=== PATIENT | male | born 1950 | race Caucasian/White ===

== ENCOUNTER 2017-10-01 20:45 | Observation (INO) | payer OTHER ==
[2017-10-01 20:20] VITALS: BP 117/67; PULSE 70; RESP 20; TEMP 98; O2SAT 99
[~2017-10-01 20:45] MED LIST: AMLO5TAB2 PO; ASPI-516 CHEW; ATOR20TA15 PO; CENTCHW4 CHEW; GLIP5TAB8 PO; LEVEMIR SQ; LISI40TA PO; LOSA100T2 PO; VIAG25TA PO
[2017-10-01] MEDS ORDERED: IOHEXOL 350 MG/ML 50 ML BTL (for Cath Lab) OTHER ONE (20:56)
[2017-10-01] MEDS ORDERED: ONDANSETRON HCL 4 MG/2 ML VIAL IV PUSH PRN ×2 (21:15)
[2017-10-01] MEDS ORDERED: ACETAMINOPHEN 500 MG CPLT PO PRN (21:15)
[2017-10-01] MEDS: ACETAMINOPHEN 500 MG CPLT PO PRN (21:33)
[2017-10-01 23:00] VITALS: PULSE 61
[2017-10-01] MEDS ORDERED: HUMALOG SQ (23:25)
[2017-10-02] VITALS (15 sets, daily range): BP systolic 135–197; BP diastolic 72–111; PULSE 66–106; RESP 18–20; TEMP 97.4–98.7; O2SAT 96–98
--- NOTE | 2017-10-02 07:15 | EKG ---
Date Performed: 10/01/2017 Time Performed: 21:17:13 PTAGE: 66 years EKG: Sinus rhythm BORDERLINE LEFT AXIS DEVIATION BORDERLINE ECG Since PREVIOUS TRACING , no significant change noted DOCTOR: Sandrine Gregorio Interpretating Date/Time 10/04/2017 08:18:03
[2017-10-02] MEDS: INSULIN ASPART SUPPLEMENTAL SCALE SQ SCH ×4 (08:00→20:46)
[2017-10-02] MEDS ORDERED: DEXTROSE 50% IN WATER 50 ML VIAL(D50) IV PUSH PRN (08:00)
[2017-10-02] MEDS ORDERED: GLUCAGON 1 MG/ML VIAL OTHER PRN (08:00)
--- NOTE | 2017-10-02 08:49 | HHI.HP ---
HPI Primary Care Physician Non-Staff Chief Complaint Chest pain History of Present Illness This is a 66-year-old male history of hypertension, hyperlipidemia, diabetes that presents to the [facility] ED to be evaluated for chest discomfort and was subsequent transported via ambulance to the chest pain center for further evaluation. He states that he developed a discomfort yesterday afternoon around 1230. Describes an intermittent tightness in the center of his chest. He has never had this before. States it lasts a few minutes and has recurred several times. He has been short of breath with it. Denies nausea or diaphoresis. He states he has had a stress test in the past. Estimates about 6 years ago. Believes it was okay. Denies recent illness. Denies fevers or chills. Review of Systems General: Patient denies fevers, chills, and recent travel. HEENT: Patient denies headache, sore throat, difficulty swallowing. Cardiovascular: Has the chest discomfort as mentioned above. Denies sensation of heart beating rapidly or irregularly. No syncope. Denies diaphoresis. Respiratory: He was short of breath. Denies inspirational chest discomfort. Denies coughing wheezing or hemoptysis. GI: Patient denies nausea, vomiting, diarrhea, abdominal pain, bloody stools. Musculoskeletal: Chronic bilateral knee pain. States he needs to have his knees replaced. Denies calf pain or edema. Neurovascular: Patient denies numbness, tingling, weakness in extremities. Denies headache. Endocrine: Denies polyuria and polydipsia. Hematologic: Denies easy bruising. Skin: Denies rash or itching. Past Family Social History Allergies: Coded Allergies: iodine (Verified Allergy, Unknown, 10/01/17) Past Medical History Hypertension, hyperlipidemia, diabetes. Denies known CAD. Reported Medications Reported Meds & Active Scripts Active Reported Humalog Inj (Insulin Human Lispro) 1,000 Unit/10 Ml Vial 5-25 Units SQ ACHS Max dose at bedtime:( )units; sugars < 70,(0)units; sugars 150-199,(5)units; sugars 200-249,(10)units; sugars 250-299,(15)units; sugars 300-349,(20)units; sugars more than 349,(25)units. Glipizide 5 Mg Tab 5 Mg PO DAILY Take 30 minutes before a meal Levemir Inj (Insulin Detemir) 1,000 unit/ 10 ML Vial 40 Units SQ HS NEB Do not mix with any other Insulin. Levemir Inj (Insulin Detemir) 1,000 unit/ 10 ML Vial 60 Units SQ DAILY Do not mix with any other Insulin. Centrum (Multiple Vitamins W/ Minerals) 1 Chew 1 Tab CHEW DAILY Losartan-Hydrochlorothiazide 100-25 Mg Tab 1 Tab PO DAILY Amlodipine (Amlodipine Besylate) 5 Mg Tab 5 Mg PO DAILY Atorvastatin (Atorvastatin Calcium) 20 Mg Tab 20 Mg PO HS Lisinopril 40 Mg Tab 40 Mg PO DAILY Viagra (Sildenafil Citrate) 25 Mg Tab 25 Mg PO DAILY PRN Aspirin 81 Mg Chew 81 Mg CHEW DAILY Active Ordered Medications Current Medications Medications (Trade) Dose Ordered Sig/Ko Route Start Time Stop Time Status Last Admin (Tylenol) 500 mg Q4H PRN PO 10/01/17 21:15 10/01/17 21:33 (Zofran Inj) 4 mg Q6H PRN IV PUSH 10/01/17 21:15 (NovoLOG SUPPLEMENTAL SCALE) 1 ACHS SLIDING SCALE SQ 10/02/17 08:00 (D50w (Vial) Inj) 50 ml UNSCH PRN IV PUSH 10/02/17 08:00 (Glucagon Inj) 1 mg UNSCH PRN OTHER 10/02/17 08:00 (Norvasc) 5 mg DAILY PO 10/02/17 09:00 (Lipitor) 20 mg HS PO 10/02/17 21:00 (Theragran M Tab) 1 tab DAILY PO 10/02/17 09:00 (Prinivil) 40 mg DAILY PO 10/02/17 09:00 (Cozaar) 100 mg DAILY PO 10/02/17 09:00 (Hydrodiuril) 25 mg DAILY PO 10/02/17 09:00 Family History There is family history of CAD. Social History Non-smoker. Denies alcohol or illicit drug use. Physical Exam Vital Signs Vital Signs Date Time Temp Pulse Resp B/P (MAP) Pulse Ox O2 Delivery O2 Flow Rate FiO2 10/02/17 08:04 160/98 (118) 10/02/17 07:50 97.8 77 20 197/111 (139) 97 10/02/17 04:00 97.9 80 20 148/77 (100) 98 10/02/17 00:00 97.7 72 18 135/82 (99) 97 10/01/17 23:00 61 10/01/17 22:33 20 10/01/17 20:20 98.0 70 20 117/67 (84) 99 Physical Exam GENERAL: This is a well-nourished, well-developed patient, in no apparent distress. Patient speaks in clear complete sentences. Patient is pleasant. HEENT: Head is atraumatic and normocephalic. Neck is supple without lymphadenopathy and trachea is midline. No JVD or carotid bruits. CARDIOVASCULAR: Regular rate and rhythm without murmurs, gallops, or rubs. RESPIRATORY: Clear to auscultation. Breath sounds equal bilaterally. No wheezes , rales, or rhonchi. Chest wall is nontender. No use of accessory muscles. GASTROINTESTINAL: Abdomen is nontender, nondistended. Abdomen soft. No obvious pulsatile mass or bruit. No CVA tenderness. Strong femoral pulses bilaterally. Normal bowel sounds in all quadrants. MUSCULOSKELETAL: Patient is moving upper and lower extremities freely. No calf tenderness or edema, no Homans sign. Strong pulses in upper and lower extremities. NEUROLOGICAL: Patient is alert and oriented. Cranial nerves 2-12 are grossly intact. No focal deficits and speech is clear. SKIN: No rash and turgor is normal. Laboratory Laboratory Tests Test 10/01/17 21:10 10/02/17 02:50 Troponin I LESS THAN 0.02 LESS THAN 0.02 Imaging Chest x-ray read by radiologist as no acute abnormality. Course EKGs are sinus rhythm without significant ST segment depressions or elevations. Caprini VTE Risk Assessment Caprini VTE Risk Assessment: Mod/High Risk (score >= 2) Caprini Risk Assessment Model Point Value = 1 Point Value = 2 Point Value = 3 Point Value = 5 Age 41-60 Minor surgery BMI > 25 kg/m2 Swollen legs Varicose veins or History of unexplained or recurrent spontaneous Oral contraceptives or hormone replacement Sepsis (< 1 month) Serious lung disease, including pneumonia (< 1 month) Abnormal pulmonary function Acute myocardial infarction Congestive heart failure (< 1 month) History of inflammatory bowel disease Medical patient at bed rest Age 61-74 Arthroscopic surgery Major open surgery (> 45 min) Laparoscopic surgery (> 45 min) Malignancy Confined to bed (> 72 hours) Immobilizing plaster cast Central venous access Age >= 75 History of VTE Family history of VTE Factor V Leiden Prothrombin [id number] Lupus anticoagulant Anticardiolipin antibodies Elevated serum homocysteine Heparin-induced thrombocytopenia Other congenital or acquired thrombophilia Stroke (< 1 month) Elective arthroplasty Hip, pelvis, or leg fracture Acute spinal cord injury (< 1 month) Prophylaxis Regimen Total Risk Factor Score Risk Level Prophylaxis Regimen 0-1 Low Early ambulation 2 Moderate Order ONE of the following: *Sequential Compression Device (SCD) *Heparin 5000 units SQ BID 3-4 Higher Order ONE of the following medications: *Heparin 5000 units SQ TID *Enoxaparin/Lovenox 40 mg SQ daily (WT < 150 kg, CrCl > 30 mL/min) *Enoxaparin/Lovenox 30 mg SQ daily (WT < 150 kg, CrCl > 10-29 mL/min) *Enoxaparin/Lovenox 30 mg SQ BID (WT < 150 kg, CrCl > 30 mL/min) AND/OR *Sequential Compression Device (SCD) 5 or more Highest Order ONE of the following medications: *Heparin 5000 units SQ TID (Preferred with Epidurals) *Enoxaparin/Lovenox 40 mg SQ daily (WT < 150 kg, CrCl > 30 mL/min) *Enoxaparin/Lovenox 30 mg SQ daily (WT < 150 kg, CrCl > 10-29 mL/min) *Enoxaparin/Lovenox 30 mg SQ BID (WT < 150 kg, CrCl > 30 mL/min) AND *Sequential Compression Device (SCD) Assessment and Plan Assessment and Plan * Chest pain: Patient has had serial cardiac enzymes and EKGs for ruling out purposes. He has been seen by Dr. Gregorio of cardiology in the chest pain center. He will undergo a Lexiscan. He will be discharged home if the stress test is nonischemic with instructions to follow-up with PCP and return to ED for interval issues. * Hypertension: Continue medication. * Hyperlipidemia: Continue medication. * Diabetes: Patient will be on sliding scale insulin coverage while in chest pain center. He should follow a diabetic diet. He should resume medication at discharge. Patient is stable at this time. He is agreeable to this plan. Stress test came back abnormal. This was discussed with Dr. Vargas. He has evaluated the patient. He has requested 1 L IV bolus and a repeat basic metabolic panel. Nitrol ointment will be applied. Patient also has allergy to iodine. Dr. Vargas is requested Solu-Medrol 60 mg IV. This has been ordered. Patient will likely have heart catheterization either today or tomorrow. Patient is agreeable to this plan. Booker Mcneal October 02, 2017 08:49
[2017-10-02] MEDS ORDERED: HYDROCHLOROTHIAZIDE 25 MG TAB PO SCH (09:00)
[2017-10-02] MEDS ORDERED: NON-FORMULARY DRUG (Losartan-Hydrochlorothiazide 1 TAB) PO SCH (09:00)
[2017-10-02] MEDS ORDERED: LOSARTAN 50 MG TAB PO SCH (09:00)
[2017-10-02] MEDS: amLODIPine BESYLATE 5 MG TAB PO SCH (10:19)
[2017-10-02] MEDS: LISINOPRIL 20 MG TAB PO SCH (10:20)
[2017-10-02] MEDS: MULTIVITAMINS/MINERALS THERAPEUTIC TAB PO SCH (10:21)
[2017-10-02] MEDS ORDERED: REGADENOSON INJ 0.4 MG/5 ML SYR ONE (11:07)
--- NOTE | 2017-10-02 13:21 | RADRPT ---
EXAM DATE: 10/02/2017 12:47 PM EDT AGE/SEX: 66 years / Male INDICATIONS:Angina. . Substernal chest pain. CLINICAL DATA: This is the patient's initial encounter. Patient reports that signs and symptoms have been present for 1 day and indicates a pain score of 4/10. MEDICAL/SURGICAL HISTORY: Hypertension. Diabetes mellitus type II. None. COMPARISON: No prior [facility] exams available for comparison. DOSE: 26.5 mCi Tc 99m Myoview at rest 8.3 mCi [id number] at stress 0.4 mg Lexiscan STRESS SYMPTOMS: Dyspnea and chest heaviness. EJECTION FRACTION: 52 % TECHNIQUE: The patient underwent pharmacologic stress with infusion of prescribed dose. Continuous ECG tracing was monitored during stress. Gated SPECT imaging was performed after stress and conventi onal SPECT imaging was performed at rest. The examination was performed on a SPECT /CT scanner, both attenuation and non-corrected datasets were reviewed. FINDINGS: Distribution: The maximum perfused segment at stress is in the lateral wall. Perfusion Study: There is a small to moderate focal wall defect involving the anterior lateral wall w hich is of moderate severity. There is a summed stress score of 8. Gated Study: There are intact wall motion and wall thickening without hypokinetic or dyskinetic segm ents. The ejection fraction is calculated at 52%. RISK CATEGORY: Intermediate (1-3 % Annual Mortality Rate) CONCLUSION: 1. Moderate size focal perfusion defect with reversibility involving the anterolateral wall which is of moderate severity. This suggests stenosis in the left anterior descending artery distribution. 2. Normal wall motion and calculated ejection fraction. Electronically signed by: Brown Thapa MD 10/02/2017 1:20 PM EDT
[2017-10-02] MEDS ORDERED: SODIUM CHLOR 0.9% 1000 ML INJ 1,000 ML IV SCH ×2 (15:24→16:00)
[2017-10-02] MEDS ORDERED: NITROGLYCERIN 2% OINT 1 GM PACKET TOPICAL SCH (15:30)
[2017-10-02] MEDS ORDERED: methylPREDNISolone SOD SUCC 125 MG/2 ML VIAL IV PUSH ONE (15:45)
[2017-10-02] MEDS ORDERED: HEPARIN-NS/PF INJ 1,000 ML ONE (15:51)
[2017-10-02] MEDS: NITROGLYCERIN 2% OINT 1 GM PACKET TOPICAL SCH ×2 (16:23→22:00)
[2017-10-02] MEDS ORDERED: HEPARIN-NS/PF INJ 500 ML ONE (16:49)
[2017-10-02] MEDS ORDERED: FAMOTIDINE 20 MG/2 ML VIAL ONE (16:51)
[2017-10-02] MEDS ORDERED: diphenhydrAMINE HCL 50 MG/ML VIAL ONE (16:51)
[2017-10-02] MEDS ORDERED: MIDAZOLAM HCL 2 MG/2 ML VIAL ONE (16:51)
[2017-10-02] MEDS ORDERED: HEPARIN SODIUM - IV 10,000 UNITS/10 ML VIAL ONE (16:51)
[2017-10-02 17:37] LABS: BICARBONATE 22.6 MEQ/L (21.0-32.0); CALCIUM 9.1 MG/DL (8.5-10.1); CREATININE 1.51 MG/DL (0.60-1.30)
--- NOTE | 2017-10-02 17:42 | TR ---
Date Performed: 10/02/2017 Time Performed: 11:27:01 DOCTOR: Sandrine Gregorio DRUG LIST: CLINICAL HISTORY: REASON FOR TEST: CHEST PAIN REASON FOR ENDING: OBSERVATION: CONCLUSION: Lexiscan stress test was performed under standard four minute protocol. Radionuclid e was injected one minute prior to ending the test. No electrocardiographic abormalities were present to suggest ischemia. Nuclear imaging and interpretation are pending. COMMENTS: no ischemia
--- NOTE | 2017-10-02 17:42 | CATHPROC ---
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 Description Size Mfg Part Number Used/Scraped TRANSDUCER, BRIE [id number] 16:48 MAN LOZANO * Used W/STOCKCOCK *[id number] *[id number] *[id number] 16:48 MEDLINE IND[employer]RIES PACK, CCL CUSTOM * Used *[id number] 16:48 [employer] PACER PEN, SKIN DUAL W/ RULER * Used *[id number] 16:48 [employer] MEDICAL WIRE, 3MMJ .035 180CM 180CM Used *[id number] 16:48 NAMIC MANIFOLD, 4 PORT * Used *[id number] 16:48 NYCOMED OMNIPAQUE, 350 MG, 150ML 150ML [id number] 16:48 HARMON MEDICAL BLANKET,WARM AIR CCL * Used *[id number] 16:48 TERUMO MEDICAL SHEATH, FR4 TERUMO (10CM) FR 4 Used *[id number] History: Current Medications Medication Dosage/Unit Route Frequency Last Date/Time Taken Glypizide Insulin HCTZ NORVASC Statins (any) LISINOPRIL ASA Viagra History: Allergies Allergy Reaction iodine History: Risk Factors Family History of Hypertension Dyslipidemia Previous IN Previous Heart Failure Premature CAD Yes Yes Yes No No Prior Valve Prior PCI Prior CABG Surgery No No No Cerebrovascular Peripheral Artery Chronic Lung On Dialysis Diabetes Diabetes Therapy Disease Disease Disease No No No No Yes Insulin History: Symptoms/Diagnosis Selection Items Chest pain History: Stress Tests Stress or Imaging Studies Performed Yes Standard Exercise Stress Test No Stress Echo No Stress Test SPECT Yes History: Other Current Smoker No Labs Hgb (g/dl) Hct (%) WBC (l/cumm) Platelets (thousands) 11.60-17.00 35.00-51.00 4.00-11.00 150.00-450.00 11.0 32.4 7.3 341 Glucose (mg/dl) BUN (mg/dl) Creatinine (mg/dl) BUN:Creatinine (1:x) 74.00-106.00 7.00-18.00 0.50-1.30 10.00-20.00 248 37 1.7 21.8 Na (meq/l) K (meq/l) Cl (meq/l) CO2 (mmol/L) Ca (mg/dl) 136.00-145.00 3.50-5.10 98.00-107.00 21.00-32.00 8.50-10.10 143 4 112 21 8.3 PT (sec) PTT (sec) INR (PTT:PT) 9.80-11.60 24.30-30.10 0.90-1.10 9.6 24.8 0.9 Troponin I (ng/ml) CPK-MB (ng/ML) 0.02-0.05 0.50-3.60 0.02 Not Drawn Medication Medication Total Dose (Bolus/Oral) Medication Total Dosage/Unit 1% XYLOCAINE 20 mL BENADRYL 50 mg FENTANYL 25 mcg PEPCID 20 mg VERSED 1.5 mg Medications (Bolus/Oral) Medication Time Given Dosage/Unit Administered By Reason PEPCID 10/02/2017 5:02:40 PM 20 mg Sara Mcleod 20 mg PEPCID given in lab by Sara Mcleod, MILLY in Right Wrist via Peripheral IV. Ordered by Aleksandar Cueva. BENADRYL 10/02/2017 5:03:11 PM 50 mg Sara Mcleod 50 mg BENADRYL given in lab by Sara Mcleod, MILLY in Right Wrist via Peripheral IV. Ordered by Aleksandar Peña. VERSED 10/02/2017 5:14:42 PM 1 mg Alyse Schmidt 1 mg VERSED given in lab by Alyse Schmidt, MILLY in Right Wrist via Peripheral IV. Ordered by Aleksandar Cueva. FENTANYL 10/02/2017 5:15:01 PM 25 mcg Alyse Schmidt 25 mcg FENTANYL given in lab by Alyse Schmidt, RN in Right Wrist via Peripheral IV. Ordered by Aleksandar Almeida. 1% XYLOCAINE 10/02/2017 5:16:53 PM 20 mL Aleksandar Vargas For pain 20 mL 1% XYLOCAINE given in lab by Aleksandar Vargas in Right Groin via Subcutaneous. Ordered by Aleksandar Peña. Reason: For pain. VERSED 10/02/2017 5:19:32 PM 0.5 mg Alyse Schmidt 0.5 mg VERSED given in lab by Alyse Schmidt, MILLY in Right Wrist via Peripheral IV. Ordered by Aleksandar Peña. Medication (Drip) Medication Time Given Dosage/Unit Concentration/Unit Diluent (ml) Solution IV Solutions 10/02/2017 4:59:56 PM 0 mL (IV) 1000 NaCl .9 Patient arrived on IV Solutions in Right Wrist via Peripheral IV. Pump/Drip Flow = 20 ml/hr using NaC l .9. Ordered by Aleksandar Vargas. Initial Case Assessment Cardiovascular HR Rhythm NIBP Chest Pain 75 sr 162/98 0 Edema Present Skin color Skin None Normal Warm Dry Circulatory - Right Pulses Dorsalis Pedis Femoral 2 2 Scale (0,1,2,3,4,d) Circulatory - Left Pulses Dorsalis Pedis Femoral 2 2 Scale (0,1,2,3,4,d) Neurological State Oriented to time-place- Alert Moves all extremities person Respiration - General Respiration Rate SpO2 (%) (B/min) 18 100 Final Case Assessment Cardiovascular HR Rhythm NIBP Chest Pain 75 sr 151/91 0 Edema Present Skin color Skin None Normal Warm Dry Circulatory - Right Pulses Dorsalis Pedis Femoral 2 2 Scale (0,1,2,3,4,d) Circulatory - Left Pulses Dorsalis Pedis Femoral 2 2 Scale (0,1,2,3,4,d) Neurological State Oriented to time-place- Alert Moves all extremities person Respiration - General Respiration Rate SpO2 (%) (B/min) 18 99 Chronological Log Time Study Chronological Log 16:55:57 Patient arrived via Bed. 16:55:58 Patient Name, D.O.B, / Armband Verified By R.N. 16:55:59 Pre-op and post- op instructions given; patient acknowledges understanding of instructions. 16:56:02 Patient has been NPO for More than 6Hrs. 16:56:03 Skin Breakdown-none per patient 16:56:09 Liv Prominences Protected 16:59:43 A # 20 IV was noted in the Wrist (right). Grade = 0 Patient arrived on IV Solutions in Right Wrist via Peripheral IV. Pump/Drip Flow = 20 ml/hr usi ng NaCl .9. Ordered by 16:59:56 Aleksandar Vargas. 17:00:34 History and physical on the chart or being dictated. Assessment: Initial Case, HR=75 BPM, Rhythm=sr, RGUN=921/98 mmhg, Chest Pain=0, Edema=None, Col or=Normal, Skin = Warm, Dry Right Pulses: Mohan Ped=2, Femoral=2 17:01:04 Left Pulses: Mohan Ped=2, Femoral=2 Neurological: State=Alert, Ox3, DUNN Respiration: Resp=18 B/min, SpW0=989 % Vitals capture started with the following parameters, Patient=Adult, Interval=5 min, Initial Pr qqhzdb=956 mmHg, 17:01:44 Deflation Rate=5 mmHg, Cuff placed on Right Arm 17:01:51 Reference ECG taken 17:02:32 HR=68 bpm, VNYF=988/98 mmhg, SpO2=98.0 %, Resp=16 B/min, Pain=0, Zachery=10, Pagan=2 17:02:40 20 mg PEPCID given in lab by Sara Mcleod, RN in Right Wrist via Peripheral IV. Ordered by Aleksandar Vargas. 17:03:11 50 mg BENADRYL given in lab by Sara Mcleod, MILLY in Right Wrist via Peripheral IV. Ordere d by Aleksandar Vargas. 17:03:19 MD arrived. 17:06:17 Vitals capture stopped. Vitals capture started with the following parameters, Patient=Adult, Interval=5 min, Initial Pr szwqsw=836 mmHg, 17:06:19 Deflation Rate=5 mmHg, Cuff placed on Right Arm 17:06:24 Bilateral groins prepped with 2% chlorhexidine, and draped after a 3 minute waiting time. 17:07:41 XK=287 bpm, PKKI=594/97 mmhg, SpO2=99.0 %, Resp=14 B/min, Pain=0, Zachery=10, Pagan=2 17:08:45 Pressure channel 1 zeroed. 17:12:09 HR=96 bpm, VELA=778/92 mmhg, SpO2=98.0 %, Resp=13 B/min, Pain=0, Zachery=10, Pagan=2 17:14:42 1 mg VERSED given in lab by Alyse Schmidt, MILLY in Right Wrist via Peripheral IV. Ordered by Aleksandar Vargas. 17:15:01 25 mcg FENTANYL given in lab by Alyse Schmidt, MILLY in Right Wrist via Peripheral IV. Orde red by Aleksandar Vargas. Time Out. Correct patient, correct procedure, correct physician, labs, allergies, and equipment verified with rn cardiac cath 17:16:21 team present. Fire risk assesment completed (see hard stop sheet for coding). Time Out Conc urred by MD and individual staff in procedure. 17:16:51 Case Start 20 mL 1% XYLOCAINE given in lab by Aleksandar Vargas in Right Groin via Subcutaneous. Ordered by Alicia 17:16:53 Aleksandar. Reason: For pain. 17:17:09 Access site was Right Femoral Artery. 17:17:47 HR=98 bpm, VHOU=574/83 mmhg, SpO2=99.0 %, Resp=9 B/min, Pain=0, Zachery=10, Pagan=2 17:17:58 A SHEATH, FR4 TERUMO (10CM) FR 4 was advanced into the Fem Art (right) using the Percutaneo us technique. A JR 4.0 INFINITI CATHETER FR 4 was advanced over a wire. OMNIPAQUE, 350 MG, 150ML 150ML was us ed for 17:18:06 injections. 17:19:32 0.5 mg VERSED given in lab by Alyse Schmidt, MILLY in Right Wrist via Peripheral IV. Ordere d by Aleksandar Vargas. Recorded Pressure: LV, HR=92, Condition=Condition 1 17:20:45 (Left Ventricle) LV 112/106/111 17:20:50 The LV was manually injected with 3 cc's and visualized. OMNIPAQUE, 350 MG, 150ML 150ML use d. Recorded Pressure: LV, Ao, HR=89, Condition=Condition 1 17:20:58 (Left Ventricle) LV 153/0/2, (Aorta) Ao 156/80/113 17:22:03 HR=96 bpm, KJHT=543/96 mmhg, SpO2=97.0 %, Resp=11 B/min, Pain=0, Zachery=10, Pagan=2 17:22:15 The RCA was injected and visualized at various angles. OMNIPAQUE, 350 MG, 150ML 150ML used . 17:23:40 Catheter was removed A JL 4.0 INFINITI CATHETER FR 4 was advanced over a wire. OMNIPAQUE, 350 MG, 150ML 150ML was us ed for 17:23:43 injections. Recorded Pressure: Ao, HR=93, Condition=Condition 1 17:23:52 (Aorta) Ao 139/74/102 17:24:13 The LCA was injected and visualized at various angles. OMNIPAQUE, 350 MG, 150ML 150ML used . 17:25:32 Catheter was removed 17:26:58 HR=96 bpm, PQAZ=349/95 mmhg, Resp=15 B/min, Pain=0, Zachery=10, Pagan=2 17:26:58 Sheath removed; pressure applied to access site. 17:29:15 Cine recording checked. 17:29:16 No case complications noted. 17:29:19 Bedside Report will be given. 17:32:01 HR=91 bpm, WQZF=864/91 mmhg, SpO2=95.0 %, Resp=11 B/min, Pain=0, Zachery=10, Pagan=2 17:32:30 DOCU called. Spoke to Doris ATKINS 17:36:20 Sterile dressing applied to site 17:36:20 No case complications noted. 17:36:23 [facility]: Final Case, HR=75 BPM, Rhythm=sr, VJQD=920/91 mmhg, Chest Pain=0, Edema=None, Grandy r=Normal, Skin = Warm, Dry Right Pulses: Mohan Ped=2, Femoral=2 17:36:27 Left Pulses: Mohan Ped=2, Femoral=2 Neurological: State=Alert, Ox3, DUNN Respiration: Resp=18 B/min, SpO2=99 % 17:36:29 Vitals capture stopped. End Study - Contrast Media Used In Study Contrast Total Opened (mL) Total Used (mL) Total Wasted (mL) Omnipaque 14 14 0 End Study - Maximum Contrast Load Max Contrast Load (mL) 255.9 End Study - Radiation Exposure Fluoro Time (minutes) 1.8 End Study - Patient Disposition Complications Transferred To No Telemetry Bed
--- NOTE | 2017-10-02 17:44 | EKG ---
Date Performed: 10/01/2017 Time Performed: 23:06:18 PTAGE: 66 years EKG: Sinus rhythm POSSIBLE LATERAL MYOCARDIAL INFARCTION ABNORMAL ECG Since PREVIOUS TRACING , no significant change noted PREVIOUS TRACIN10/01/2017 21.17 DOCTOR: Sandrine Gregorio Interpretating Date/Time 10/02/2017 17:43:48
--- NOTE | 2017-10-02 17:55 | MB ---
cc: Aleksandar Vargas MD, Arthur W MD DATE: 10/02/2017 HISTORY OF PRESENT ILLNESS: Joel is a 66-year-old gentleman with history of chronic renal insufficiency, hypertension, hyperlipidemia, diabetes who presents to the [facility] emergency room with a chief complaint of chest pain rated as moderate, pressure-like, also described as tightness. He was transferred to [facility] for further evaluation and management. Otherwise, denies fever, chills, cough, or GI bleeding, PND, orthopnea, syncope or dizziness. PAST MEDICAL HISTORY: Per history of present illness. ALLERGIES: IODINE. MEDICATIONS PRIOR TO ADMISSION 1. Humalog. 2. Glipizide. 3. Levemir 4. Centrum. 5. Losartan/hydrochlorothiazide 100/25 6. Amlodipine 5 mg daily. 7. Atorvastatin 20 mg at bedtime. 8. Lisinopril 40 mg daily. 9. Viagra 25 mg p.r.n. 10. Aspirin 81 mg a day. MEDICATIONS IN THE HOSPITAL: 1. Atorvastatin 20 mg at bedtime 2. Half inch nitro paste q 8 hs. 3. Amlodipine 5 mg daily. 4. Multivitamins. 5. Lisinopril 40 mg daily. PHYSICAL EXAMINATION: VITAL SIGNS: Blood pressure 163/94, pulse 92, respiratory rate 18, temperature 97.4. GENERAL: He is alert and oriented x3, in no acute distress. NECK: Supple. No JVD. No bruit. CARDIOVASCULAR: S1, S2. No murmurs, rubs or gallops. LUNGS: Clear to auscultation bilaterally. ABDOMEN: Soft, nontender, nondistended with positive bowel sounds. EXTREMITIES: No lower extremity edema. CARDIOLOGY STUDIES: Myocardial perfusion study showed a moderate size focal perfusion defect with reversibility involving the anterolateral wall, moderate in severity. EF 52%. Intermediate risk. EKG: Normal sinus rhythm, nonspecific ST-T wave changes. LABORATORY DATA: Troponin less than 0.02 x2. White count 7.3, hemoglobin 11.0, hematocrit 32.4, platelet count 341. Sodium 143, potassium 4.0, chloride 112, bicarbonate 21.0, BUN 37, creatinine 1.70, AST 13, ALT 19. BNP is 80. INR 1.9. DIAGNOSES: 1. Unstable angina. 2. [place] [employer] class IV angina. 3. Moderate risk myocardial perfusion study. 4. Diabetes mellitus. 5. Chronic renal insufficiency. 6. Anemia. DISCUSSION: I have explained to the patient that risk of cath PCI is 5-10% chance of , stroke, heart attack, bleeding, infection, need for bypass surgery, dialysis, blood transfusion, bleeding, infection, anaphylaxis and arrhythmia. I told him in particular due to his elevated creatinine that he would be a higher than average risk for needing temporary or permanent dialysis. I do think left heart catheterization is urgently indicated due to the resting angina, which is new onset and by definition [place] [employer] class IV angina with a moderate size area of reversibility in the anterolateral wall of moderate severity and moderate risk nuclear stress test, multiple cardiac risk factors including chronic renal insufficiency and diabetes mellitus. The patient has been hydrated with 1 liter of normal saline prior to procedure. Further recommendations based on the details of his cardiac catheterization. We will continue Lovastatin 20 mg at bedtime. If the patient has coronary artery disease, we will certainly start aspirin 81 mg daily. MD MARILYN South/ , 05:13 PM , 05:53 PM
--- NOTE | 2017-10-02 20:08 | MR ---
cc: Aleksandar Vargas MD DATE: 10/02/2017 PROCEDURE: Left heart catheterization, left ventriculography, coronary angiography. INDICATIONS FOR PROCEDURE: Unstable angina, [place] Cardiovascular Society class IV angina. Moderate risk nuclear stress test, with moderate severity, moderate size reversible defect in the anterolateral wall, diabetes mellitus, chronic renal insufficiency, multiple risk factors. Note, prior to procedure, I explained to the patient that the risk of cardiac catheterization PCI with a 5-10% chance of , stroke, heart attack, bleeding, infection, need for bypass surgery, dialysis, blood transfusion, bleeding, infection, infarction, arrhythmia. I explained in particular that his risk for needing temporary or permanent dialysis would be even higher due to his baseline chronic renal insufficiency. The patient understood and consented to the procedure. The patient was pretreated with 60 mg of Solu-Medrol, 50 mg of IV Benadryl and 20 mg of IV Pepcid due to his DYE ALLERGY. DESCRIPTION OF PROCEDURE: The patient was brought to the cardiac catheterization laboratory, prepped and draped in the usual sterile fashion, 10 mL of 1% lidocaine was used to locally anesthetize the right common femoral artery. A 4-Luxembourgish sheath placed in right common femoral artery, a 4-Luxembourgish JL4 catheter were used to perform left and right coronary angiography, left ventriculography. FINDINGS: The LV pressure is 112/0-3, EF 60%. Right coronary artery is dominant. There was no significant coronary artery disease. Reference vessel diameter of the proximal segment is 3.5-4 mm. The vessel was relatively tortuous with a slight romeo's crook in the proximal segment. There is mild disease in the mid segment, up to 10% angiographically, with slightly irregular borders. Left main coronary artery has no significant disease angiographically. LAD has a large 3.5-4 mm reference vessel diameter in the proximal segment and no significant disease angiographically. The first and second diagonal artery are both small to medium sized vessels 1.5-2.0 mm, no significant obstructive disease angiographically. Left circumflex vessel has no significant disease angiographically. First obtuse marginal vessel is a small medium size vessel of 2.0 mm reference vessel diameter. No significant disease angiographically. The second obtuse marginal vessel is a medium to large vessel, reference vessel diameter 3.5 mm. No significant disease angiographically. CONCLUSION: 1. Angiographically minimal to mild one-vessel coronary artery disease in right dominant system as detailed above. 2. Normal LV systolic function, ejection fraction 60%. 3. Low left ventricular end-diastolic pressure consistent with intravascular volume depletion. Note, patient received a liter of normal saline precatheterization and a second liter of normal saline was ordered post-catheterization. 4. Note, a total of 14 mL of contrast was used during the entire procedure. 5. Recommend workup of noncardiac chest pain and also recommend baby aspirin 81 mg a day. The patient lives in [place]. I recommend followup with a nurse coordinator and he can discuss risks and benefits of long-term use of statins, we are going to stop nurse coordinator, given the relative lack of significant coronary artery disease. MD MARILYN South/RICKEY/shilo , 05:31 PM , 06:04 PM
[2017-10-02] MEDS ORDERED: ATORVASTATIN 20 MG TAB PO SCH (21:00)
[2017-10-03] VITALS (13 sets, daily range): BP systolic 109–141; BP diastolic 70–80; PULSE 87–115; RESP 18; TEMP 98–98.5; O2SAT 95–98
[2017-10-03] MEDS: NITROGLYCERIN 2% OINT 1 GM PACKET TOPICAL SCH (05:48)
[2017-10-03] MEDS: amLODIPine BESYLATE 5 MG TAB PO SCH (08:43)
[2017-10-03] MEDS: INSULIN ASPART SUPPLEMENTAL SCALE SQ SCH (08:43)
[2017-10-03] MEDS: LISINOPRIL 20 MG TAB PO SCH (08:43)
[2017-10-03] MEDS: MULTIVITAMINS/MINERALS THERAPEUTIC TAB PO SCH (08:43)
[2017-10-03 10:41] LABS: AUTOMATED NEUTROPHIL # 8.4 TH/MM3 (1.8-7.7); BASOPHIL % 0.2 % (0.0-2.0); HEMATOCRIT 31.6 % (39.0-51.0); LYMPH % 13.9 % (9.0-44.0); LYMPHOCYTE # 1.4 TH/MM3 (1.0-4.8); MEAN CELL VOLUME 92.6 FL (80.0-100.0); MEAN CORPUSCULAR HEMOGLOBIN 32.3 PG (27.0-34.0); MEAN CORPUSCULAR HGB CONC 34.9 % (32.0-36.0); MEAN PLATELET VOLUME 7.8 FL (7.0-11.0); MONO % 4.2 % (0.0-8.0); MONOCYTE # 0.4 TH/MM3 (0-0.9); NEUT % 81.7 % (16.0-70.0); PLATELET COUNT 310 TH/MM3 (150-450); RED BLOOD COUNT 3.41 MIL/MM3 (4.50-5.90); RED CELL DISTRIBUTION WIDTH 13.5 % (11.6-17.2); WHITE BLOOD COUNT 10.3 TH/MM3 (4.0-11.0)
[2017-10-03 11:32] LABS: ALBUMIN 3.1 GM/DL (3.4-5.0); AST (GOT) 9 U/L (15-37); BICARBONATE 15.9 MEQ/L (21.0-32.0); BLOOD UREA NITROGEN 42 MG/DL (7-18); CALCIUM 8.7 MG/DL (8.5-10.1); CHLORIDE 107 MEQ/L (98-107); CREATININE 2.05 MG/DL (0.60-1.30); GLOMERULAR FILTRATION RATE 33 ML/MIN (>89); GLUCOSE,RANDOM 363 MG/DL (74-106); SODIUM (NA) 138 MEQ/L (136-145)
[2017-10-03 11:40] LABS: ALT (GPT) 19 U/L (12-78); PHOSPHORUS 3.9 MG/DL (2.5-4.9)
--- NOTE | 2017-10-03 11:42 | HHI.PR ---
Subjective Remarks This is a 66-year-old male history of hypertension, hyperlipidemia, diabetes that presents to the [place] ED to be evaluated for chest discomfort and was subsequent transported via ambulance to the chest pain center for further evaluation. He states that he developed a discomfort yesterday afternoon around 1230. Describes an intermittent tightness in the center of his chest. He has never had this before. States it lasts a few minutes and has recurred several times. He has been short of breath with it. Denies nausea or diaphoresis. He states he has had a stress test in the past. Estimates about 6 years ago. Believes it was okay. Denies recent illness. Denies fevers or chills. Patient had stress test that was abnormal Underwent cardiac catheterization with Dr. Vargas No interventions done Can be discharged to home to follow-up with his primary care physician and his pattern marker Objective Vitals Vital Signs Date Time Temp Pulse Resp B/P (MAP) Pulse Ox O2 Delivery O2 Flow Rate FiO2 10/03/17 08:00 114 10/03/17 07:30 98.5 115 18 109/75 (86) 96 10/03/17 07:30 114 10/03/17 06:00 106 10/03/17 05:00 92 10/03/17 04:00 96 10/03/17 03:22 98.1 115 18 141/80 (100) 95 10/03/17 03:00 87 10/03/17 03:00 96 10/03/17 02:00 96 10/03/17 01:00 100 10/03/17 00:00 102 10/02/17 23:30 98.5 100 18 158/77 (104) 96 10/02/17 23:00 101 10/02/17 22:00 106 10/02/17 21:00 96 10/02/17 20:33 98.7 96 18 138/87 (104) 96 10/02/17 20:00 92 10/02/17 19:00 87 10/02/17 18:45 98.2 88 18 152/86 (108) 96 10/02/17 18:45 88 10/02/17 17:40 99 Room Air 10/02/17 16:43 97.4 92 18 163/94 (117) 98 10/02/17 14:50 66 18 148/72 (97) 98 I/O 10/02/17 10/02/17 10/02/17 10/03/17 10/03/17 10/03/17 07:00 15:00 23:00 07:00 15:00 23:00 Intake Total 565 ml 600 ml 480 ml Output Total 250 ml Balance 565 ml 600 ml 230 ml Intake Oral 565 ml 0 ml 480 ml IV Total 600 ml Output Urine Total 250 ml # Voids 5 1 Result Diagram: 10/03/17 1010 10/03/17 1010 Other Results Laboratory Tests Test 10/01/17 21:10 10/02/17 02:50 10/02/17 16:30 10/03/17 10:10 Troponin I LESS THAN 0.02 NG/ML LESS THAN 0.02 NG/ML Blood Urea Nitrogen 30 MG/DL 42 MG/DL Creatinine 1.51 MG/DL 2.05 MG/DL Random Glucose 182 MG/DL 363 MG/DL Calcium Level 9.1 MG/DL 8.7 MG/DL Sodium Level 144 MEQ/L 138 MEQ/L Potassium Level 4.0 MEQ/L 4.2 MEQ/L Chloride Level 110 MEQ/L 107 MEQ/L Carbon Dioxide Level 22.6 MEQ/L 15.9 MEQ/L Anion Gap 11 MEQ/L 15 MEQ/L Estimat Glomerular Filtration Rate 47 ML/MIN 33 ML/MIN White Blood Count 10.3 TH/MM3 Red Blood Count 3.41 MIL/MM3 Hemoglobin 11.0 GM/DL Hematocrit 31.6 % Mean Corpuscular Volume 92.6 FL Mean Corpuscular Hemoglobin 32.3 PG Mean Corpuscular Hemoglobin Concent 34.9 % Red Cell Distribution Width 13.5 % Platelet Count 310 TH/MM3 Mean Platelet Volume 7.8 FL Neutrophils (%) (Auto) 81.7 % Lymphocytes (%) (Auto) 13.9 % Monocytes (%) (Auto) 4.2 % Eosinophils (%) (Auto) 0.0 % Basophils (%) (Auto) 0.2 % Neutrophils # (Auto) 8.4 TH/MM3 Lymphocytes # (Auto) 1.4 TH/MM3 Monocytes # (Auto) 0.4 TH/MM3 Eosinophils # (Auto) 0.0 TH/MM3 Basophils # (Auto) 0.0 TH/MM3 CBC Comment DIFF FINAL Differential Comment Albumin 3.1 GM/DL Magnesium Level 2.0 MG/DL Aspartate Amino Transf (AST/SGOT) 9 U/L Imaging Last Impressions Myocardial Perfusion Scan [facility] 10/02/17 0000 Signed Impressions: CONCLUSION: 1. Moderate size focal perfusion defect with reversibility involving the anter olateral wall which is of moderate severity. This suggests stenosis in the left anterior descending artery distribution. 2. Normal wall motion and calculated ejection fraction. Objective Remarks GENERAL: Awake alert and oriented 3 talkative and cooperative SKIN: Warm and dry. HEAD: Atraumatic. Normocephalic. EYES: Pupils equal and round. No scleral icterus. No injection or drainage. Extraocular muscles intact ENT: No nasal bleeding or discharge. Mucous membranes pink and moist. Tongue is midline NECK: Trachea midline. No JVD. Supple CARDIOVASCULAR: Regular rate and rhythm. S1-S2 no S3-S4 obese RESPIRATORY: No accessory muscle use. Clear to auscultation. Breath sounds equal bilaterally. GASTROINTESTINAL: Abdomen soft, non-tender, nondistended. Hepatic and splenic margins not palpable. MUSCULOSKELETAL: Extremities without clubbing, cyanosis, or edema. No obvious deformities. NEUROLOGICAL: Awake and alert. No obvious cranial nerve deficits. Motor grossly within normal limits. Five out of 5 muscle strength in the arms and legs. Normal speech. PSYCHIATRIC: Appropriate mood and affect; insight and judgment normal. Procedures 10/02/2017 PROCEDURE: Left heart catheterization, left ventriculography, coronary angiography. INDICATIONS FOR PROCEDURE: Unstable angina, [place] Cardiovascular Society class IV angina. Moderate risk nuclear stress test, with moderate severity, moderate size reversible defect in the anterolateral wall, diabetes mellitus, chronic renal insufficiency, multiple risk factors. Note, prior to procedure, I explained to the patient that the risk of cardiac catheterization PCI with a 5-10% chance of , stroke, heart attack, bleeding, infection, need for bypass surgery, dialysis, blood transfusion, bleeding, infection, infarction, arrhythmia. I explained in particular that his risk for needing temporary or permanent dialysis would be even higher due to his baseline chronic renal insufficiency. The patient understood and consented to the procedure. The patient was pretreated with 60 mg of Solu-Medrol, 50 mg of IV Benadryl and 20 mg of IV Pepcid due to his DYE ALLERGY. DESCRIPTION OF PROCEDURE: The patient was brought to the cardiac catheterization laboratory, prepped and draped in the usual sterile fashion, 10 mL of 1% lidocaine was used to locally anesthetize the right common femoral artery. A 4-Lithuanian sheath placed in right common femoral artery, a 4-Lithuanian JL4 catheter were used to perform left and right coronary angiography, left ventriculography. FINDINGS: The LV pressure is 112/0-3, EF 60%. Right coronary artery is dominant. There was no significant coronary artery disease. Reference vessel diameter of the proximal segment is 3.5-4 mm. The vessel was relatively tortuous with a slight romeo's crook in the proximal segment. There is mild disease in the mid segment, up to 10% angiographically, with slightly irregular borders. Left main coronary artery has no significant disease angiographically. LAD has a large 3.5-4 mm reference vessel diameter in the proximal segment and no significant disease angiographically. The first and second diagonal artery are both small to medium sized vessels 1.5-2.0 mm, no significant obstructive disease angiographically. Left circumflex vessel has no significant disease angiographically. First obtuse marginal vessel is a small medium size vessel of 2.0 mm reference vessel diameter. No significant disease angiographically. The second obtuse marginal vessel is a medium to large vessel, reference vessel diameter 3.5 mm. No significant disease angiographically. CONCLUSION: 1. Angiographically minimal to mild one-vessel coronary artery disease in right dominant system as detailed above. 2. Normal LV systolic function, ejection fraction 60%. 3. Low left ventricular end-diastolic pressure consistent with intravascular volume depletion. Note, patient received a liter of normal saline precatheterization and a second liter of normal saline was ordered post-catheterization. 4. Note, a total of 14 mL of contrast was used during the entire procedure. 5. Recommend workup of noncardiac chest pain and also recommend baby aspirin 81 mg a day. The patient lives in [place]. I recommend followup with a pattern marker and he can discuss risks and benefits of long-term use of statins, we are going to stop pattern marker, given the relative lack of significant coronary artery disease. Aleksandar Vargas MD Medications and IVs Current Medications Acetaminophen (Tylenol) 500 mg Q4H PRN PO HEADACHE Last administered on at 21:33; Start 10/01/17 at 21:15 Ondansetron HCl (Zofran Inj) 4 mg Q6H PRN IV PUSH NAUSEA; Start 10/01/17 at 21: 15 Acetaminophen (Tylenol) 500 mg Q4H PRN PO HEADACHE; Start 10/01/17 at 21:15; Status Cancel Ondansetron HCl (Zofran Inj) 4 mg Q6H PRN IV PUSH NAUSEA; Start 10/01/17 at 21: 15; Status Cancel Insulin Aspart (NovoLOG SUPPLEMENTAL SCALE) 1 ACHS SLIDING SCALE SQ Last administered on 10/03/17at 08:43; Start 10/02/17 at 08:00 Dextrose (D50w (Vial) Inj) 50 ml UNSCH PRN IV PUSH HYPOGLYCEMIA-SEE COMMENTS; Start 10/02/17 at 08:00 Glucagon (Glucagon Inj) 1 mg UNSCH PRN OTHER HYPOGLYCEMIA-SEE COMMENTS; Start 10/02/17 at 08:00 Amlodipine Besylate (Norvasc) 5 mg DAILY PO Last administered on 10/03/17at 08: 43; Start 10/02/17 at 09:00 Atorvastatin Calcium (Lipitor) 20 mg HS PO Last administered on 10/02/17at 20:44 ; Start 10/02/17 at 21:00 Multivitamins/ Minerals Therapeutic (Theragran M Tab) 1 tab DAILY PO Last administered on 10/03/17at 08:43; Start 10/02/17 at 09:00 Lisinopril (Prinivil) 40 mg DAILY PO Last administered on 10/03/17at 08:43; Start 10/02/17 at 09:00 Non-Formulary Medication 1 tab DAILY PO ; Start 10/02/17 at 09:00; Stop at 09:00; Status DC Losartan Potassium (Cozaar) 100 mg DAILY PO Last administered on 10/02/17at 10: 20; Start 10/02/17 at 09:00; Stop 10/02/17 at 14:42; Status DC Hydrochlorothiazide (Hydrodiuril) 25 mg DAILY PO Last administered on at 10:21; Start 10/02/17 at 09:00; Stop 10/02/17 at 14:42; Status DC Regadenoson (Lexiscan Inj) 0.4 mg STK-MED ONCE .ROUTE Last administered on 10/02at 11:07; Start 10/02/17 at 11:07; Stop 10/02/17 at 11:08; Status DC Sodium Chloride 1,000 ml @ 100 mls/hr Q10H IV ; Start 10/02/17 at 15:24; Stop 10/02/17 at 16:05; Status DC Nitroglycerin (Nitroglycerin 2% Oint) 1 inch Q8HR TOPICAL ; Start 10/02/17 at 15 :30; Stop 10/02/17 at 15:38; Status DC Methylprednisolone Sodium Succinate (SoluMEDROL INJ) 60 mg NOW ONCE IV PUSH Last administered on 10/02/17at 16:22; Start 10/02/17 at 15:45; Stop 10/02/17 at 15:46; Status DC Nitroglycerin (Nitroglycerin 2% Oint) 0.5 inch Q8HR TOPICAL Last administered on 10/03/17at 05:48; Start 10/02/17 at 15:45 Heparin Sodium/ Sodium Chloride 1,000 ml @ As Directed STK-MED ONCE .ROUTE Last administered on 10/02/17at 15:51; Start 10/02/17 at 15:51; Stop 10/02/17 at 15:52; Status DC Sodium Chloride 1,000 ml @ 125 mls/hr Q8H IV Last administered on 10/02/17at 16 :23; Start 10/02/17 at 16:00; Stop 10/02/17 at 23:59; Status DC Heparin Sodium/ Sodium Chloride 500 ml @ As Directed STK-MED ONCE .ROUTE Last administered on 10/02/17at 16:49; Start 10/02/17 at 16:49; Stop 10/02/17 at 16:50 ; Status DC Midazolam HCl (Versed Inj) 2 mg STK-MED ONCE .ROUTE Last administered on at 17:14; Start 10/02/17 at 16:51; Stop 10/02/17 at 16:52; Status DC Heparin Sodium (Porcine) (Heparin Inj) 10,000 units STK-MED ONCE .ROUTE ; Start 10/02/17 at 16:51; Stop 10/02/17 at 16:52; Status DC Diphenhydramine HCl (Benadryl Inj) 50 mg STK-MED ONCE .ROUTE Last administered on 10/02/17at 17:03; Start 10/02/17 at 16:51; Stop 10/02/17 at 16:52; Status DC Famotidine (Pepcid Inj) 20 mg STK-MED ONCE .ROUTE Last administered on at 17:02; Start 10/02/17 at 16:51; Stop 10/02/17 at 16:52; Status DC Fentanyl Citrate (fentaNYL INJ) 100 mcg STK-MED ONCE .ROUTE Last administered on 10/02/17at 17:15; Start 10/02/17 at 17:10; Stop 10/02/17 at 17:11; Status DC Iohexol (OMNIPAQUE 350 INJ (Weather Clerk)) 50 ml STK-MED ONCE OTHER ; Start at 20:56; Stop 10/03/17 at 08:27; Status DC A/P Problem List: (1) Chest pain ICD Code: R07.9 - Chest pain, unspecified (2) Hypertension ICD Code: I10 - Essential (primary) hypertension (3) Hyperlipidemia ICD Code: E78.5 - Hyperlipidemia, unspecified (4) Renal insufficiency ICD Code: N28.9 - Disorder of kidney and ureter, unspecified Assessment and Plan * Chest pain: Patient has had serial cardiac enzymes and EKGs for ruling out purposes. He has been seen by Dr. Gregorio of cardiology in the chest pain center. He will undergo a Lexiscan. He will be discharged home if the stress test is nonischemic with instructions to follow-up with PCP and return to ED for interval issues. * Hypertension: Continue medication. * Hyperlipidemia: Continue medication. * Diabetes: Patient will be on sliding scale insulin coverage while in chest pain center. He should follow a diabetic diet. He should resume medication at discharge. Patient is stable at this time. He is agreeable to this plan. Chronic renal insufficiency was elevated due to the cardiac catheterization Stress test came back abnormal. This was discussed with Dr. Vargas. He has evaluated the patient. He has requested 1 L IV bolus and a repeat basic metabolic panel. Nitrol ointment will be applied. Patient also has allergy to iodine. Dr. Vargas is requested Solu-Medrol 60 mg IV. This has been ordered. Patient will likely have heart catheterization either today or tomorrow. Patient is agreeable to this plan. Status post cardiac catheterization stable on October 02 Discharge to home today Hold all nephrotoxic medications at discharge Follow-up with PCP next week Follow-up with local cardiology in 1 week Discharge Planning Discharge to home today Jones Wan DO October 03, 2017 11:42
[2017-10-03] MEDS ORDERED: ATOR20TA15 PO (11:46)
[2017-10-03] MEDS ORDERED: GLIP5TAB8 PO (11:46)
[2017-10-03] MEDS ORDERED: ASPI-516 CHEW (11:46)
[2017-10-03] MEDS ORDERED: CENTCHW4 CHEW (11:46)
[2017-10-03] MEDS ORDERED: AMLO5 PO (11:46)
[2017-10-03 11:48] LABS: ALKALINE PHOSPHATASE 79 U/L (45-117); FREE T4 0.79 NG/DL (0.76-1.46); TOTAL BILIRUBIN ADULT 0.2 MG/DL (0.2-1.0); TOTAL PROTEIN 7.1 GM/DL (6.4-8.2)
--- NOTE | 2017-10-03 11:48 | HHI.DS ---
Discharge Summary Admission Date October 01, 2017 at 20:55 Discharge Date: October 03, 2017 Admitting Diagnosis (1) Chest pain ICD Code: R07.9 - Chest pain, unspecified Diagnosis: Principal (2) Hypertension ICD Code: I10 - Essential (primary) hypertension Diagnosis: Secondary (3) Hyperlipidemia ICD Code: E78.5 - Hyperlipidemia, unspecified Diagnosis: Secondary (4) Renal insufficiency ICD Code: N28.9 - Disorder of kidney and ureter, unspecified Diagnosis: Principal Procedures 10/02/2017 PROCEDURE: Left heart catheterization, left ventriculography, coronary angiography. INDICATIONS FOR PROCEDURE: Unstable angina, [place] [employer] class IV angina. Moderate risk nuclear stress test, with moderate severity, moderate size reversible defect in the anterolateral wall, diabetes mellitus, chronic renal insufficiency, multiple risk factors. Note, prior to procedure, I explained to the patient that the risk of cardiac catheterization PCI with a 5-10% chance of , stroke, heart attack, bleeding, infection, need for bypass surgery, dialysis, blood transfusion, bleeding, infection, infarction, arrhythmia. I explained in particular that his risk for needing temporary or permanent dialysis would be even higher due to his baseline chronic renal insufficiency. The patient understood and consented to the procedure. The patient was pretreated with 60 mg of Solu-Medrol, 50 mg of IV Benadryl and 20 mg of IV Pepcid due to his DYE ALLERGY. DESCRIPTION OF PROCEDURE: The patient was brought to the cardiac catheterization laboratory, prepped and draped in the usual sterile fashion, 10 mL of 1% lidocaine was used to locally anesthetize the right common femoral artery. A 4-Gabonese sheath placed in right common femoral artery, a 4-Gabonese JL4 catheter were used to perform left and right coronary angiography, left ventriculography. FINDINGS: The LV pressure is 112/0-3, EF 60%. Right coronary artery is dominant. There was no significant coronary artery disease. Reference vessel diameter of the proximal segment is 3.5-4 mm. The vessel was relatively tortuous with a slight romeo's crook in the proximal segment. There is mild disease in the mid segment, up to 10% angiographically, with slightly irregular borders. Left main coronary artery has no significant disease angiographically. LAD has a large 3.5-4 mm reference vessel diameter in the proximal segment and no significant disease angiographically. The first and second diagonal artery are both small to medium sized vessels 1.5-2.0 mm, no significant obstructive disease angiographically. Left circumflex vessel has no significant disease angiographically. First obtuse marginal vessel is a small medium size vessel of 2.0 mm reference vessel diameter. No significant disease angiographically. The second obtuse marginal vessel is a medium to large vessel, reference vessel diameter 3.5 mm. No significant disease angiographically. CONCLUSION: 1. Angiographically minimal to mild one-vessel coronary artery disease in right dominant system as detailed above. 2. Normal LV systolic function, ejection fraction 60%. 3. Low left ventricular end-diastolic pressure consistent with intravascular volume depletion. Note, patient received a liter of normal saline precatheterization and a second liter of normal saline was ordered post-catheterization. 4. Note, a total of 14 mL of contrast was used during the entire procedure. 5. Recommend workup of noncardiac chest pain and also recommend baby aspirin 81 mg a day. The patient lives in [place]. I recommend followup with a psych therapist and he can discuss risks and benefits of long-term use of statins, we are going to stop psych therapist, given the relative lack of significant coronary artery disease. Aleksandar Vargas MD Brief History - From Admission This is a 66-year-old male history of hypertension, hyperlipidemia, diabetes that presents to the [facility] to be evaluated for chest discomfort and was subsequent transported via ambulance to the chest pain center for further evaluation. He states that he developed a discomfort yesterday afternoon around 1230. Describes an intermittent tightness in the center of his chest. He has never had this before. States it lasts a few minutes and has recurred several times. He has been short of breath with it. Denies nausea or diaphoresis. He states he has had a stress test in the past. Estimates about 6 years ago. Believes it was okay. Denies recent illness. Denies fevers or chills. Patient had stress test that was abnormal Underwent cardiac catheterization with Dr. Vargas No interventions done Can be discharged to home to follow-up with his primary care physician and his psych therapist CBC/BMP: 10/03/17 1010 10/03/17 1010 Significant Findings Laboratory Tests Test 10/01/17 21:10 10/02/17 02:50 10/02/17 16:30 10/03/17 10:10 Troponin I LESS THAN 0.02 NG/ML LESS THAN 0.02 NG/ML Blood Urea Nitrogen 30 MG/DL (7-18) 42 MG/DL (7-18) Creatinine 1.51 MG/DL (0.60-1.30) 2.05 MG/DL (0.60-1.30) Random Glucose 182 MG/DL (74-106) 363 MG/DL (74-106) Chloride Level 110 MEQ/L (98-107) Estimat Glomerular Filtration Rate 47 ML/MIN (>89) 33 ML/MIN (>89) Red Blood Count 3.41 MIL/MM3 (4.50-5.90) Hemoglobin 11.0 GM/DL (13.0-17.0) Hematocrit 31.6 % (39.0-51.0) Neutrophils (%) (Auto) 81.7 % (16.0-70.0) Neutrophils # (Auto) 8.4 TH/MM3 (1.8-7.7) Albumin 3.1 GM/DL (3.4-5.0) Aspartate Amino Transf (AST/SGOT) 9 U/L (15-37) Carbon Dioxide Level 15.9 MEQ/L (21.0-32.0) Imaging Last Impressions Myocardial Perfusion Scan Nuc [facility] 10/02/17 0000 Signed Impressions: CONCLUSION: 1. Moderate size focal perfusion defect with reversibility involving the anter olateral wall which is of moderate severity. This suggests stenosis in the left anterior descending artery distribution. 2. Normal wall motion and calculated ejection fraction. PE at Discharge GENERAL: Awake alert and oriented 3 talkative and cooperative SKIN: Warm and dry. HEAD: Atraumatic. Normocephalic. EYES: Pupils equal and round. No scleral icterus. No injection or drainage. Extraocular muscles intact ENT: No nasal bleeding or discharge. Mucous membranes pink and moist. Tongue is midline NECK: Trachea midline. No JVD. Supple CARDIOVASCULAR: Regular rate and rhythm. S1-S2 no S3-S4 obese RESPIRATORY: No accessory muscle use. Clear to auscultation. Breath sounds equal bilaterally. GASTROINTESTINAL: Abdomen soft, non-tender, nondistended. Hepatic and splenic margins not palpable. MUSCULOSKELETAL: Extremities without clubbing, cyanosis, or edema. No obvious deformities. NEUROLOGICAL: Awake and alert. No obvious cranial nerve deficits. Motor grossly within normal limits. Five out of 5 muscle strength in the arms and legs. Normal speech. PSYCHIATRIC: Appropriate mood and affect; insight and judgment normal. Hospital Course This is a 66-year-old male history of hypertension, hyperlipidemia, diabetes that presents to the [facility] ED to be evaluated for chest discomfort and was subsequent transported via ambulance to the chest pain center for further evaluation. He states that he developed a discomfort yesterday afternoon around 1230. Describes an intermittent tightness in the center of his chest. He has never had this before. States it lasts a few minutes and has recurred several times. He has been short of breath with it. Denies nausea or diaphoresis. He states he has had a stress test in the past. Estimates about 6 years ago. Believes it was okay. Denies recent illness. Denies fevers or chills. Patient had stress test that was abnormal Underwent cardiac catheterization with Dr. Vargas No interventions done Can be discharged to home to follow-up with his primary care physician and his psych therapist Pt Condition on Discharge: Good Discharge Disposition: Discharge Home Discharge Time: <= 30 minutes Discharge Instructions DIET: Follow Instructions for: Heart Healthy Diet, Diabetic Diet Speech Therapy-Diet Recommends: Regular Activities you can perform: Regular-No Restrictions, Shower Only-No Bath Follow up Referrals: Cardiology - 1 Week with Aleksandar Vargas MD PCP Follow-up - 2-3 Days New Medications: Amlodipine (Norvasc) 5 Mg Tab 5 MG PO BID for Blood Pressure Management, #60 TAB Continued Medications: Aspirin (Aspirin) 81 Mg Chew 81 MG CHEW DAILY for Blood Clot Prevention, #30 TAB 0 Refills (This prescription has been renewed) Atorvastatin (Atorvastatin) 20 Mg Tab 20 MG PO HS for Cholesterol Management, #30 TAB 0 Refills (This prescription has been renewed) Glipizide (Glipizide) 5 Mg Tab 5 MG PO DAILY for Blood Sugar Management, #30 TAB 0 Refills (This prescription has been renewed) Take 30 minutes before a meal Insulin Detemir Inj (Levemir Inj) 1,000 unit/ 10 ML Vial 60 UNITS SQ DAILY for Blood Sugar Management, VIAL 0 Refills Do not mix with any other Insulin. Insulin Detemir Inj (Levemir Inj) 1,000 unit/ 10 ML Vial 40 UNITS SQ HS NEB for Blood Sugar Management, VIAL 0 Refills Do not mix with any other Insulin. Insulin Lispro (Human) Inj (Humalog Inj) 1,000 Unit/10 Ml Vial 5-25 UNITS SQ ACHS for Blood Sugar Management, #1 VIAL 0 Refills Max dose at bedtime:( )units; sugars < 70,(0)units; sugars 150-199,(5)units; sugars 200-249,(10)units; sugars 250-299,(15)units; sugars 300-349,(20)units; sugars more than 349,(25)units. Multiple Vitamins W/ Minerals (Centrum) 1 Chew 1 TAB CHEW DAILY for Nutritional Supplement, #30 TAB 0 Refills (This prescription has been renewed) Sildenafil (Viagra) 25 Mg Tab 25 MG PO DAILY PRN for ERECTILE DYSFUNCTION, TAB 0 Refills Discontinued Medications: Amlodipine (Amlodipine) 5 Mg Tab 5 MG PO DAILY for Blood Pressure Management, #30 TAB 0 Refills Lisinopril (Lisinopril) 40 Mg Tab 40 MG PO DAILY for Blood Pressure Management, #30 TAB 0 Refills Losartan-Hydrochlorothiazide (Losartan-Hydrochlorothiazide) 100-25 Mg Tab 1 TAB PO DAILY for Blood Pressure Management, #30 TAB 0 Refills Jones Wan DO October 03, 2017 11:48
[2017-10-03] MEDS: ACETAMINOPHEN 500 MG CPLT PO PRN (12:00)
--- NOTE | 2017-10-03 14:14 | PD.CARD.PN ---
Subjective Subjective Remarks alert in nad Objective Medications Current Medications Medications (Trade) Dose Ordered Sig/Ko Route Start Time Stop Time Status Last Admin (Tylenol) 500 mg Q4H PRN PO 10/01/17 21:15 10/03/17 12:00 (Zofran Inj) 4 mg Q6H PRN IV PUSH 10/01/17 21:15 (NovoLOG SUPPLEMENTAL SCALE) 1 ACHS SLIDING SCALE SQ 10/02/17 08:00 10/03/17 08:43 (D50w (Vial) Inj) 50 ml UNSCH PRN IV PUSH 10/02/17 08:00 (Glucagon Inj) 1 mg UNSCH PRN OTHER 10/02/17 08:00 (Norvasc) 5 mg DAILY PO 10/02/17 09:00 10/03/17 08:43 (Lipitor) 20 mg HS PO 10/02/17 21:00 10/02/17 20:44 (Theragran M Tab) 1 tab DAILY PO 10/02/17 09:00 10/03/17 08:43 (Prinivil) 40 mg DAILY PO 10/02/17 09:00 10/03/17 08:43 (Nitroglycerin 2% Oint) 0.5 inch Q8HR TOPICAL 10/02/17 15:45 10/03/17 05:48 Vital Signs / I&O Vital Signs Date Time Temp Pulse Resp B/P (MAP) Pulse Ox O2 Delivery O2 Flow Rate FiO2 10/03/17 11:00 98.0 90 18 110/70 (83) 98 10/03/17 08:00 114 10/03/17 07:30 98.5 115 18 109/75 (86) 96 10/03/17 07:30 114 10/03/17 06:00 106 10/03/17 05:00 92 10/03/17 04:00 96 10/03/17 03:22 98.1 115 18 141/80 (100) 95 10/03/17 03:00 87 10/03/17 03:00 96 10/03/17 02:00 96 10/03/17 01:00 100 10/03/17 00:00 102 10/02/17 23:30 98.5 100 18 158/77 (104) 96 10/02/17 23:00 101 10/02/17 22:00 106 10/02/17 21:00 96 10/02/17 20:33 98.7 96 18 138/87 (104) 96 10/02/17 20:00 92 10/02/17 19:00 87 10/02/17 18:45 98.2 88 18 152/86 (108) 96 10/02/17 18:45 88 10/02/17 17:40 99 Room Air 10/02/17 16:43 97.4 92 18 163/94 (117) 98 10/02/17 14:50 66 18 148/72 (97) 98 I/O 10/02/17 10/02/17 10/02/17 10/03/17 10/03/17 10/03/17 07:00 15:00 23:00 07:00 15:00 23:00 Intake Total 565 ml 600 ml 480 ml Output Total 250 ml Balance 565 ml 600 ml 230 ml Intake Oral 565 ml 0 ml 480 ml IV Total 600 ml Output Urine Total 250 ml # Voids 5 1 Physical Exam GENERAL: SKIN: Warm and dry. HEAD: Normocephalic. EYES: No scleral icterus. No injection or drainage. NECK: Supple, trachea midline. No JVD or lymphadenopathy. CARDIOVASCULAR: Regular rate and rhythm without murmurs, gallops, or rubs. RESPIRATORY: Breath sounds equal bilaterally. No accessory muscle use. GASTROINTESTINAL: Abdomen soft, non-tender, nondistended. MUSCULOSKELETAL: No cyanosis, or edema. BACK: Nontender without obvious deformity. No CVA tenderness. Laboratory Laboratory Tests Test 10/02/17 16:30 10/03/17 10:10 Blood Urea Nitrogen 30 MG/DL 42 MG/DL Creatinine 1.51 MG/DL 2.05 MG/DL Random Glucose 182 MG/DL 363 MG/DL Calcium Level 9.1 MG/DL 8.7 MG/DL Sodium Level 144 MEQ/L 138 MEQ/L Potassium Level 4.0 MEQ/L 4.2 MEQ/L Chloride Level 110 MEQ/L 107 MEQ/L Carbon Dioxide Level 22.6 MEQ/L 15.9 MEQ/L Anion Gap 11 MEQ/L 15 MEQ/L Estimat Glomerular Filtration Rate 47 ML/MIN 33 ML/MIN White Blood Count 10.3 TH/MM3 Red Blood Count 3.41 MIL/MM3 Hemoglobin 11.0 GM/DL Hematocrit 31.6 % Mean Corpuscular Volume 92.6 FL Mean Corpuscular Hemoglobin 32.3 PG Mean Corpuscular Hemoglobin Concent 34.9 % Red Cell Distribution Width 13.5 % Platelet Count 310 TH/MM3 Mean Platelet Volume 7.8 FL Neutrophils (%) (Auto) 81.7 % Lymphocytes (%) (Auto) 13.9 % Monocytes (%) (Auto) 4.2 % Eosinophils (%) (Auto) 0.0 % Basophils (%) (Auto) 0.2 % Neutrophils # (Auto) 8.4 TH/MM3 Lymphocytes # (Auto) 1.4 TH/MM3 Monocytes # (Auto) 0.4 TH/MM3 Eosinophils # (Auto) 0.0 TH/MM3 Basophils # (Auto) 0.0 TH/MM3 CBC Comment DIFF FINAL Differential Comment Total Protein 7.1 GM/DL Albumin 3.1 GM/DL Phosphorus Level 3.9 MG/DL Magnesium Level 2.0 MG/DL Alkaline Phosphatase 79 U/L Aspartate Amino Transf (AST/SGOT) 9 U/L Alanine Aminotransferase (ALT/SGPT) 19 U/L Total Bilirubin 0.2 MG/DL Free Thyroxine 0.79 NG/DL Thyroid Stimulating Hormone 3rd Gen 0.219 uIU/ML Assessment and Plan Problem List: (1) Chest pain ICD Codes: R07.9 - Chest pain, unspecified (2) Renal insufficiency ICD Codes: N28.9 - Disorder of kidney and ureter, unspecified Assessment and Plan 1.) Chest pain - cath with no significant cad, rec eval of noncardiac chest pain , ok to dc from cv standpoint Aleksandar Vargas MD October 03, 2017 14:14
[2017-10-03 16:24] LABS: HEMOGLOBIN A1C 9.3 % (4.3-6.0)
== END 2017-10-03 14:32 | disposition home or self-care (01) ==
LOC: NEDDLT 20:45 → NEPGCP 20:55 → HCIS 10-02 16:03 → NEDA 10-02 16:13 → HCIS 10-02 18:55
PROVIDERS: ADMIT Hospitalist; ATTEND Hospitalist
DX: I25.110 Atherosclerotic heart disease of native coronary artery with unstable angina pectoris (principal); R07.9 Chest pain, unspecified; E11.22 Type 2 diabetes mellitus with diabetic chronic kidney disease; N18.9 Chronic kidney disease, unspecified; I12.9 Hypertensive chronic kidney disease with stage 1 through stage 4 chronic kidney disease, or unspecified chronic kidney disease; R06.02 Shortness of breath; Z79.899 Other long term (current) drug therapy; Z79.4 Long term (current) use of insulin; Z82.49 Family history of ischemic heart disease and other diseases of the circulatory system; E78.5 Hyperlipidemia, unspecified; Z91.041 Radiographic dye allergy status; D64.9 Anemia, unspecified; R79.89 Other specified abnormal findings of blood chemistry; E86.9 Volume depletion, unspecified; R94.31 Abnormal electrocardiogram [ECG] [EKG]; Z79.82 Long term (current) use of aspirin
CPT/HCPCS: 71045; 78452; 80048; 80053; 82948; 83036; 83735; 83880; 84100; 84439; 84443; 84484; 85025; 85610; 85730; 93005; 93017; 93458; 96372; 99152; 99285; A9502; C1769; C1893; G0378; J1200; J1644; J1815; J2250; J2785; J2930; J3010; J7030; Q9967